=== PATIENT | male | born 1965 ===

== ENCOUNTER 2022-09-17 22:02 | Emergency (ER) | payer OTHER, SELFPAY ==
[2022-09-17 22:07] VITALS: BP 144/76; PULSE 74; RESP 20; TEMP 38.1; O2SAT 94; BMI 35.3
--- NOTE | 2022-09-17 23:38 | ED.FALL ---
HPI - Fall General Chief Complaint: Fall Stated Complaint: fell laceration head Time Seen by Provider: 09/17/22 22:53 Source: patient Mode of arrival: ambulatory Limitations: no limitations History of Present Illness HPI Narrative: Patient was at home slipped on water fell backwards hitting his back of the head to the ground no loss of consciousness no nausea no vomiting came with laceration to back of the head patient does have chronic neck pain no nausea no vomiting not on any blood thinners Related Data Allergies Allergy/AdvReac Type Severity Reaction Status Date / Time lisinopril [LISINOPRIL] Allergy Unknown COUGH Unverified 12/01/19 14:45 Review of Systems Review of Systems: Yes all other systems are reviewed and are negative [facility] Social History Social History Alcohol intake: current Alcohol intake frequency: holidays/special occasions only Smoked in Last 30 Days: Yes Use of substances other than those prescribed or required for medical reasons: No Advance Directives: No Advance Directives Information Provided: No Physical Exam Vital Signs: Vital Signs: Last Vital Signs Temp 100.6 F H 09/17/22 22:07 Pulse 74 09/17/22 22:07 Resp 20 09/17/22 22:07 BP 144/76 H 09/17/22 22:07 Pulse Ox 94 09/17/22 22:07 O2 Del Method Room Air 09/17/22 22:07 BMI result Body Mass Index 35.3 Appearance: Alert. Oriented X3. No acute distress. Eyes: PERRLA, No Nystagmus HEENT: Pharynx normal. Oral Mucosa moist 2 in long laceration on top of the head Neck: Normal inspection. Neck supple. No midline tenderness CVS: Normal heart rate and rhythm. Pulses normal. Respiratory: No respiratory distress. Equal air entry bilateral, no wheezing/rales/rhonchi Abdomen: Soft and nontender. Bowel sounds are present, no mass palpable, no CVA tenderness Skin: Skin warm and dry. Normal skin color. Normal skin turgor. Extremities: No lower extremity edema. No calf tenderness Neuro: Oriented X 3. No motor deficit. No sensory deficit.No cerebellar signs , cranial nerves II-XII intact Procedures Laceration Laceration 1: Site: scalp Size (cm): 6 Description: linear Depth: simple, single layer Skin layer closed with: other (Tristian) Number of sutures: 10 Medical Decision Making Medical Decision Making MDM Narrative: CT scan of the head and C-spine negative for acute, laceration stapled Discharge Plan Discharge Clinical Impression: Head injury, closed, without LOC, Laceration of scalp Patient Disposition: Home, Self-Care Instructions: Laceration (ED), Head Injury (ED) Additional Instructions: Local care as advised Staple removal in 7- 10 days
== END 2022-09-17 23:53 | disposition home or self-care (01) ==
PROVIDERS: Emergency Provider Internal Medicine
DX: S09.90XA Unspecified injury of head, initial encounter (principal); S01.01XA Laceration without foreign body of scalp, initial encounter; W03.XXXA Other fall on same level due to collision with another person, initial encounter; Y93.9 Activity, unspecified; Y92.019 Unspecified place in single-family (private) house as the place of occurrence of the external cause; Y99.9 Unspecified external cause status
CPT/HCPCS: 12002; 70450; 72125; 99284

== ENCOUNTER → 2023-04-30 09:56 | Outpatient (BNVA) | payer OTHER, SELFPAY | PROVIDERS: Visit Provider Physician Assistant | DX: S83.91XA Sprain of unspecified site of right knee, initial encounter (principal); S83.92XA Sprain of unspecified site of left knee, initial encounter; X50.3XXA Overexertion from repetitive movements, initial encounter | CPT/HCPCS: 73564; 99203 ==

== ENCOUNTER → 2023-05-20 15:29 | Outpatient (BNVA) | payer OTHER, SELFPAY | PROVIDERS: Visit Provider Physician Assistant Medical | DX: S83.411D Sprain of medial collateral ligament of right knee, subsequent encounter (principal); X50.3XXD Overexertion from repetitive movements, subsequent encounter | CPT/HCPCS: 99213 ==

== ENCOUNTER → 2023-06-10 15:31 | Outpatient (BNVA) | payer OTHER, SELFPAY | PROVIDERS: Visit Provider Physician Assistant Medical | DX: S83.92XD Sprain of unspecified site of left knee, subsequent encounter (principal); X50.3XXD Overexertion from repetitive movements, subsequent encounter | CPT/HCPCS: 99213 ==

== ENCOUNTER → 2023-07-07 15:44 | Outpatient (BNVA) | payer OTHER, SELFPAY | PROVIDERS: Visit Provider Physician Assistant Medical | DX: S83.242D Other tear of medial meniscus, current injury, left knee, subsequent encounter (principal); X50.3XXD Overexertion from repetitive movements, subsequent encounter | CPT/HCPCS: 99213 ==

== ENCOUNTER 2024-08-11 10:03 | Emergency (ER) | payer OTHER, SELFPAY ==
--- NOTE | ~2024-08-11 | XR_ITS ---
EXAMINATION: XR HAND 1-2 VIEWS RIGHT HISTORY: pain, injury COMPARISON: There are no prior studies available for comparison. FINDINGS: Four views of the right hand are submitted. Osseous mineralization is normal. There is a mildly displaced comminuted fracture of the proximal phalanx of the index finger. No additional fracture is seen. There is no dislocation. There is narrowing of the MCP joint of the middle finger and the 1st carpometacarpal joint. There is diffuse soft tissue swelling at the fracture site. XR/XR hand RT 2V IMPRESSION: Mildly displaced comminuted fracture of the proximal phalanx of the index finger. Electronically signed by: Javon Barber MD 08/11/2024 10:47 AM EDT
[2024-08-11 10:09] VITALS: BP 168/75; PULSE 79; RESP 18; TEMP 36.9; O2SAT 96; BMI 33.7
--- NOTE | 2024-08-11 10:15 | PC.NURSE ---
Pt. has iodine and saline cleanse at this time, per provider.
--- NOTE | 2024-08-11 10:15 | ED.GENADULT ---
HPI - General Adult General Chief complaint: Wound/Laceration Stated complaint: finger laceration at work Time Seen by Provider: 08/11/24 10:14 Source: patient Mode of arrival: ambulatory Limitations: no limitations History of Present Illness ED Provider: Nessa Mcclure PA-C HPI narrative: Patient is a 58 year old assigned male at with a history of COPD, HTN, tobacco use, and pre-diabetes presenting to the emergency department today with a right index finger injury. Patient is right hand dominant. Patient states that he was at work when a piece of metal spinning on a ring caught his right index finger and ripped. Patient states that his last tetanus shot was 3 years ago. Patient states that he cannot move the finger and he is having trouble feeling anything with the right index finger. Patient denies any dizziness, lightheadedness, abdominal pain, nausea, vomiting, fever, chills, blurry vision, double vision, loss of vision, chest pain, difficulty breathing, shortness of breath, back pain, night sweats, pain with urination, increased urinary frequency, increased urinary urgency, blood in his urine or stool, syncope or a near syncopal episode, bowel incontinence, bladder incontinence, or any other complaints at this time. Relieving factors: none Related Data Previous Rx's ?Medication ?Instructions ?Recorded acetaminophen 325 mg capsule 325 mg PO Q4-6H PRN fever or pain 04/30/23 #30 caps Allergies Allergy/AdvReac Type Severity Reaction Status Date / Time lisinopril [LISINOPRIL] Allergy Unknown COUGH Verified 08/11/24 10:12 Review of Systems Constitutional: Constitutional: Reports no additional constitutional complaints, Denies chills, Denies fever(s) and Denies night sweats Eyes: Eyes: Reports no additional eye complaints, Denies blurry vision, Denies change in vision, Denies diplopia, Denies eye discharge, Denies loss of vision and Denies eye pain ENT: Denies dizziness Cardiovascular: Cardiovascular: Reports no additional cardiovascular complaints, Denies chest pain, Denies lightheadedness, Denies Loss of Consciousness and Denies dyspnea Respiratory: Respiratory: Reports no additional respiratory complaints and Denies dyspnea Gastrointestinal: Gastrointestinal: Reports no additional gastrointestinal complaints, Denies abdominal pain, Denies melena, Denies hematochezia, Denies change in bowel habits and Denies change in stool character Genitourinary: Genitourinary: Reports no additional male genitourinary complaints, Denies hematuria, Denies oliguria, Denies difficulty urinating, Denies dysuria, Denies urinary frequency, Denies urinary hesitancy, Denies urinary incontinence and Denies urinary urgency Musculoskeletal: Musculoskeletal: Reports no additional musculoskeletal complaints Comments: right index finger injury Neurologic: Denies dizziness and Denies loss of vision Psychiatric: Psychiatric: Reports no additional psychiatric complaints Endocrine: Endocrine: Reports no additional endocrine complaints Hematologic/Lymphatic: Hematologic/Lymphatic: Reports no additional hematologic/lymphatic complaints Allergic/Immunologic: Allergic/Immunologic: Reports no additional allergic/immunologic complaints REPLACED BY [facility] Past Medical History Attestation statement: The following information was validated with the patient. Source: old records reviewed and nursing notes reviewed Social History Social History Alcohol intake: current Alcohol intake frequency: holidays/special occasions only Smoked in Last 30 Days: No Use of substances other than those prescribed or required for medical reasons: No Advance Directives: No Advance Directives Information Provided: Yes Do you have a plan to hurt others: No Plan Physical Exam ED Vital Signs: Vital Signs - 24 hr 08/11/24 10:09 Temperature 98.4 F Pulse Rate 79 Respiratory Rate 18 Blood Pressure 168/75 H Pulse Oximetry 96 Oxygen Delivery Method Room Air BMI result Body Mass Index 33.7 Const General: cooperative, no acute distress, alert and awake Nutritional Appearance: well nourished Orientation/consciousness: patient oriented x3 HENMT Head: Yes normal to inspection and Yes atraumatic Ears: hearing grossly normal bilaterally and external ears normal General nose exam: Normal external nose present, no nasal discharge noted and no epistaxis Face and sinus: Yes normal facial exam, No abrasion and No laceration Mouth: Normal oral and palatal mucosa present, no drooling and no muffled voice Eyes General: appearance normal, both eyes and all related structures Periorbital: periorbital findings normal Eyelids: Yes eyelids normal Conjunctivae: conjunctivae normal Pupils: Equal, round and reactive pupils present EOM: EOMs intact bilaterally Neck Neck: Yes normal visual inspection, Yes full ROM and Yes no lymphadenopathy Resp Effort & Inspection: normal respiratory effort and able to speak in complete sentences Neuro General: patient oriented x3, moves all extremities and CN's II-XI intact bilaterally Cranial nerves: Yes Equal, round and reactive pupils present Cognition (Neuro): normal cognition Extrem Other: Psych Appearance: grossly normal Mental Status: mental status grossly normal Affect: normal affect Attitude: cooperative Thought process: Normal thought process present Thought content: Normal thought content present Insight: Good insight present (Psych) Medications Administered Discontinued Medications Generic Name Dose Route Start Last Admin Trade Name Ruslan PRN Reason Stop Dose Admin Cefazolin Sodium 1 gm 08/11/24 10:21 08/11/24 10:37 Cefazolin Sodium 1 Gm Vial IVPUSH 08/11/24 10:22 1 gm ONCE ONE Administration Medical Decision Making Medical Decision Making MDM Narrative: Patient is a 58 year old assigned male at with a history of COPD, HTN, tobacco use, and pre-diabetes presenting to the emergency department today with a right index finger injury. Patient's physical exam was as noted in the physical exam portion of this note. Patient's distal right index finger is dusky with no cap refill. Patient's right index finger cannot actively be moved and when passively moving it is flaccid. I immediately consulted with our orthopedic team who recommended transfer for possible microvascular intervention. While awaiting call back from [facility] I obtained labs that were unremarkable and a right hand x-ray that showed a significant right index finger fracture. Patient was given ancef given his open fracture of the right index finger. Patient is up to date on his tetanus status. I spoke with the hand team at [facility] who informed me they do not re-vascularize digits at their facility and they recommended calling [facility] in [place] or [facility] in [place] who sometimes re-vascularize digits. He stated that if neither of them wanted to accept the patient, he recommends re-consulting with our hand team here as research has shown, especially in smokers, that a distal amputation may be the best course of action. I spoke with the [facility] transfer line who stated they do not re-vascularize digits. I spoke with the hand team from [place] who stated they would not re-vascularize the patient and they recommended speaking to [facility], [facility], and [facility] in [place], [place]. I spoke with Dr. Faustin from the [facility] Hand team who agreed to accepted the patient and recommended transfer to their ED. Dr. Porter from the [facility] ED acepted the patient. I explained my physical exam findings as well as all test results to the patient and the patient's coworker. I answered all questions asked by the patient and the patient's coworker. Patient and the patient's coworker verbalized agreement and understanding with this treatment plan and transfer to [facility]. Differential Diagnosis Differential Diagnoses: The differential diagnosis associated with the presentation includes Open fracture Ischemic finger Tendon injury Admission/Observation Consideration of admission/observation: Escalation of care including admission/observation considered Patient transferred as noted in the MDM Rationale portion of this note. Consult Healthcare Provider Management of the patient was discussed with: Moose Hunter (spoke with the orthopedic team as noted in the MDM Rationale portion of this note) Lab Data [facility] Lab Attestation statement: I reviewed the patient's lab results. My interpretation of these results are in the MDM Rationale portion of this note. 08/11/24 10:30 08/11/24 10:30 Labs: Lab Results 08/11/24 Range/Units 10:30 WBC 10.3 (4.8-10.8) X10*3/uL RBC 4.97 (4.60-5.80) X10*6/uL Hgb 15.1 (14.0-18.0) g/dl Hct 44.6 (42.0-52.0) % MCV 89.7 (80.0-98.0) fL MCH 30.4 (27.0-33.0) pg MCHC 33.9 (31.0-36.0) g/dl RDW 13.1 (11.0-16.0) % Plt Count 277 (160-400) X10*3/uL MPV 10.3 (9.4-12.4) fL Immature Gran % (Auto) 0.4 (0.0-0.4) % Neut % (Auto) 67.4 (45-73) % Lymph % (Auto) 18.8 L (20-40) % [place]ham % (Auto) 8.7 (2-11) % Eos % (Auto) 4.0 (0-4) % Baso % (Auto) 0.7 (0-2) % Lymph # (Auto) 1.9 (1.2-4.9) X10*3/uL Ingham # (Auto) 0.9 (0.1-1.2) X10*3/uL Eos # (Auto) 0.4 (0.0-0.4) X10*3/uL Baso # (Auto) 0.1 (0.0-0.2) X10*3/uL Abs Immat Gran (auto) 0.04 H (0.00-0.03) X10*3/uL Absolute Neuts (auto) 7.0 (2.0-8.3) x10*3/uL Absolute Nucleated RBC 0.000 (0.0-0.012) X10*3/uL Nucleated RBC % (auto) 0.0 (0.0-0.2) /100WBC PT 10.9 (10.9-12.4) SEC INR 1.0 (0.9-1.1) Sodium 141 (135-145) mmol/L Potassium 4.4 (3.3-5.1) mmol/L Chloride 105 (96-108) mmol/L Carbon Dioxide 26 (22-29) mmol/L Anion Gap 14 (12-20) BUN 20 H (9-16) mg/dL Creatinine 0.96 (0.5-1.4) mg/dL Estim Creat Clear Calc 113.5 Estimated GFR > 60 Random Glucose 115 (60-115) mg/dL Calcium 9.6 (8.4-10.2) mg/dL Magnesium 2.0 (1.6-2.6) mg/dL Total Bilirubin 0.8 (0.0-1.0) mg/dL AST 38 H (5-37) U/L ALT 38 (0-40) U/L Alkaline Phosphatase 79 (39-117) U/L Total Protein 7.2 (6.5-8.0) g/dL Albumin 4.3 (3.5-5.0) g/dL Independent Interpretation I performed an independent interpretation of an: Plain X-Ray Interpretation: My interpretation is in agreement with the radiologist's impression of this imaging study. EXAMINATION: XR HAND 1-2 VIEWS RIGHT HISTORY: pain, injury COMPARISON: There are no prior studies available for comparison. FINDINGS: Four views of the right hand are submitted. Osseous mineralization is normal. There is a mildly displaced comminuted fracture of the proximal phalanx of the index finger. No additional fracture is seen. There is no dislocation. There is narrowing of the MCP joint of the middle finger and the 1st carpometacarpal joint. There is diffuse soft tissue swelling at the fracture site. XR/XR hand RT 2V IMPRESSION: Mildly displaced comminuted fracture of the proximal phalanx of the index finger. Electronically signed by: Javon Barber MD 08/11/2024 10:47 AM EDT RP Dictated By: Javon Barber MD Signed By: Electronically signed by Javon Barber MD 08/11/24 1047 Radiology Impression Discussion of test interpretation with radiology: I have reviewed the radiologist's reading. Independent Historian Clinical information obtained from an independent historian. History obtained from or confirmed by: Other (patient's coworker provided additional history and confirmed the history provided by the patient.) Critical Care Time Critical Care Time Critical Care Time: Yes Total Critical Care Time: 53 Attestation: I spent 53 minutes of Critical Care Time with this patient. This does not include time spent on separately reported billable procedures. Discharge Plan Discharge Clinical Impression: Ischemia of finger, Finger laceration, Finger fracture Patient Disposition: er [facility] Transfer Details: [facility] - accepted by Dr. Porter and Dr. Mcconnell Prescriptions: No Action acetaminophen 325 mg capsule 325 mg PO Q4-6H PRN (Reason: fever or pain) Qty: 30 0RF Print Language: Singaporean
[2024-08-11 10:35] LABS: MANUAL DIFF FLAG NO
[2024-08-11] MEDS: ceFAZolin Sodium 1 GM VIAL IVPUSH (10:37)
[2024-08-11 10:43] LABS: Prothrombin Time 10.9 SEC (10.9-12.4)
[2024-08-11 10:44] LABS: Basophils Absolute Auto 0.1 X10*3/uL (0.0-0.2); Basophils Percent Auto 0.7 % (0-2); Eosinophils Absolute Auto 0.4 X10*3/uL (0.0-0.4); Hematocrit 44.6 % (42.0-52.0); Hemoglobin 15.1 g/dl (14.0-18.0); Imm Gran Abs Auto 0.04 X10*3/uL (0.00-0.03); Imm Gran Pct Auto 0.4 % (0.0-0.4); Lymphocytes Absolute Auto 1.9 X10*3/uL (1.2-4.9); Lymphocytes Percent Auto 18.8 % (20-40); Mean Corpuscular HGB Conc 33.9 g/dl (31.0-36.0); Mean Corpuscular Hemoglobin 30.4 pg (27.0-33.0); Mean Corpuscular Volume 89.7 fL (80.0-98.0); Mean Platelet Volume 10.3 fL (9.4-12.4); Monocytes Absolute Auto 0.9 X10*3/uL (0.1-1.2); Monocytes Percent Auto 8.7 % (2-11); Neutrophils Percent Auto 67.4 % (45-73); Platelet Count 277 X10*3/uL (160-400); Red Blood Count 4.97 X10*6/uL (4.60-5.80); Red Cell Distribution Width 13.1 % (11.0-16.0); White Blood Count 10.3 X10*3/uL (4.8-10.8)
[2024-08-11 10:53] LABS: Alanine Aminotransferase 38 U/L (0-40); Albumin Level 4.3 g/dL (3.5-5.0); Alkaline Phosphatase 79 U/L (39-117); Anion Gap 14 (12-20); Aspartate Amino Transferase 38 U/L (5-37); Bilirubin Total 0.8 mg/dL (0.0-1.0); Blood Urea Nitrogen 20 mg/dL (9-16); Calcium 9.6 mg/dL (8.4-10.2); Carbon Dioxide 26 mmol/L (22-29); Chloride 105 mmol/L (96-108); Creatinine Clr Calc Pharmacy 113.5; Estimated Glomerular Filt Rate > 60; Glucose Random 115 mg/dL (60-115); Potassium 4.4 mmol/L (3.3-5.1); Sodium 141 mmol/L (135-145); Total Protein 7.2 g/dL (6.5-8.0)
--- NOTE | 2024-08-11 12:28 | PC.NURSE ---
Wrapped up finger wound with non adherent dressing and bulky wrap dressing. Awaiting transport flower buncher or picker time and arrival.
[2024-08-11 14:00] VITALS: BP 147/86; PULSE 88; RESP 15; TEMP 37; O2SAT 97
[2024-08-11 14:05] VITALS: BP 147/86; PULSE 88; RESP 15; TEMP 37; O2SAT 97
--- NOTE | 2024-08-11 14:48 | PC.NURSE ---
Report given to [facility]/ transport. Verifiede with pt. if he is having any pain. Pt. states no. EMS was concerned d/t long distance travel, pt. may not be able to tolerate pain., pt. states hes okay.
== END 2024-08-11 14:50 | disposition short-term general hospital (02) ==
PROVIDERS: Physician Assistant Medical; Emergency Provider Emergency Medicine Emergency Medical Services
DX: S62.600A Fracture of unspecified phalanx of right index finger, initial encounter for closed fracture (principal); S61.210A Laceration without foreign body of right index finger without damage to nail, initial encounter; M79.641 Pain in right hand; W31.89XA Contact with other specified machinery, initial encounter; Y93.9 Activity, unspecified; Y92.9 Unspecified place or not applicable; Y99.0 Civilian activity done for income or pay; I99.8 Other disorder of circulatory system; Z79.899 Other long term (current) drug therapy
CPT/HCPCS: 36415; 73120; 80053; 83735; 85025; 85610; 99285; J0690

== ENCOUNTER → 2024-08-11 10:14 | Outpatient (BNV) | payer OTHER, SELFPAY | PROVIDERS: Visit Provider Radiology Diagnostic Radiology | DX: S62.610A Displaced fracture of proximal phalanx of right index finger, initial encounter for closed fracture (principal) | CPT/HCPCS: 73120 ==